=== PATIENT | male | born 2000 | race Caucasian/White ===

== ENCOUNTER 2022-01-14 22:01 | Inpatient (IN) | payer BC ==
[~2022-01-14] VITALS: Ht 188 cm; Wt 88.9 kg
--- NOTE | 2022-01-14 22:16 | NUR ---
SHARLA 89 FROM URGENT CARE FOR SOB X2 DAYS AND CP FOR POSSIBLE PNEUOMOTHORAX. PT A/OX4. TOLERATING R/A AT 95%. CONNECTED PT TO POX AND MONITOR. SAFETY MEASURES IN PLACE.
--- NOTE | 2022-01-14 22:35 | NUR ---
COVID ANTIGEN SWAB COLLECTED AND SENT TO LAB
--- NOTE | 2022-01-14 22:50 | NUR ---
BELLMAN DRIVER AT PT'S BEDSIDE
[2022-01-14] MEDS ORDERED: DIATR MEGLU/DIATRIZOATE SODIUM 30 ML BOTTLE (GASTROGRAPHIN) ONE (22:57)
[2022-01-14] MEDS ORDERED: IOHEXOL-300 100 ML VIAL IV ONE (22:57)
[2022-01-14] MEDS ORDERED: CT SWABBABLE VALVE TRANS SET 1 EA INFUS.SET MC ONE (22:57)
[2022-01-14] MEDS ORDERED: IV NS 0.9% 250 ML IV ONE (22:57)
[2022-01-14] MEDS ORDERED: IV NS 0.9% 1,000 ML BAG IV ONE (23:00)
[2022-01-14 23:07] LABS: BASOPHILS % (AUTO) 0.2 % (0.0-2.0); EOSINOPHILS % (AUTO) 0.6 % (0.0-6.0); HEMATOCRIT 45 % (39-51); HEMOGLOBIN 15.2 g/dL (13.5-17.5); LYMPHOCYTES # (AUTO) 1.6 K/uL (0.8-4.8); LYMPHOCYTES % (AUTO) 9.1 % (20.0-44.0); MEAN CORPUSCULAR HGB CONC 34 g/dl (31.0-36.0); MEAN CORPUSCULAR VOLUME 84 fL (80-96); MONOCYTES # (AUTO) 1.5 K/uL (0.1-1.30); MONOCYTES % (AUTO) 8.5 % (2.0-12.0); NEUTROPHILS # (AUTO) 14.3 K/uL (1.8-8.9); NEUTROPHILS % (AUTO) 81.6 % (43.0-81.0); PLATELET COUNT (AUTO) 277 K/uL (150-450); RED BLOOD CELL COUNT(AUTO) 5.35 MIL/uL (4.5-6.0); WHITE BLOOD COUNT (AUTO) 17.5 K/uL (4.3-11.0)
[2022-01-14 23:15] LABS: CALCIUM, SERUM 9.6 mg/dL (8.5-10.1); CARBON DIOXIDE 27 mmol/L (21-32); CHLORIDE 102 mmol/L (98-107); GLUCOSE 107 mg/dL (74-106); POTASSIUM 3.4 mmol/L (3.5-5.1); SODIUM SERUM 140 mmol/L (136-145); UREA NITROGEN, BLOOD 20 mg/dL (7-18)
--- NOTE | 2022-01-14 23:16 | NUR ---
PT TAKEN TO CT VIA [facility]
--- NOTE | 2022-01-15 01:49 | NUR ---
DR ADAMES ON THE PHONW WITH KEENAN SERRANO
[2022-01-15] MEDS ORDERED: MAG HYDROX/AL HYDROX/SIMETH 30 ML UDC PO PRN (02:00)
[2022-01-15] MEDS ORDERED: MAGNESIUM HYDROXIDE 30 ML UDC PO PRN (02:00)
[2022-01-15] MEDS ORDERED: IV NS 0.9% 1,000 ML IV PRN (02:00)
[2022-01-15] MEDS ORDERED: ACETAMINOPHEN 325 MG TABLET PO PRN (02:00)
[2022-01-15] MEDS ORDERED: Z GUARD REMEDY 4 OZ OINT TP PRN (02:00)
[2022-01-15] MEDS ORDERED: ONDANSETRON HCL/PF 4 MG/2 ML VIAL IVP PRN (02:00)
--- NOTE | 2022-01-15 02:16 | NUR ---
REPORT GIVEN TO 3W RN FOR DADA
[2022-01-15 02:36] VITALS: BP 125/68
--- NOTE | 2022-01-15 02:42 | NUR ---
PT TRANSFERRED TO 3W 323 VIA ACLS PROTOCOL. VSS. ALL BELONGINGS WITH PT.
--- NOTE | 2022-01-15 02:45 | NUR ---
RN ADMITTING NOTE PATIENT BEING ADMITTED FOR PNEUMOMEDIASTINUM. PATIENT IS ON RA AT THIS TIME, 98%, BUT PATIENT WOULD PREFER HAVING OXYGEN HE IS STILL HAVING PAIN AND DIFFICULTY BREATHING. PATIENT NOW PUT ON 2 LPM 02 SUPPLEMENTATION VIA NC, TOLERATING WELL. PATIENT IS A/O X 4 ABLE TO MAKE NEEDS KNOWN. PATIENT REPORTS MILD CP AT THIS TIME. PATIENT HAS A RAC 18 G PATENT AND INTACT, FLUSHING WELL. SKIN INTACT. BELONGINGS INVENTORIED. ORIENTED PATIENT TO ROOM, RN, AND PERIOPERATIVE NURSE. PATIENT IS CURRENTLY NPO, EDUCATED PATIENT REGARDING DIET. PATIENT STATES HE HAS BEEN VACCINATED WITH COVID X 2 AND REFUSES FLU VACCINE AT THIS TIME. PATIENT AMBULATES STEADILY. SAFETY MEASURES IN PLACE: BED LOCKED AND IN LOWEST POSITION, CALL LIGHT WITHIN REACH, SIDE RAILS UP. WILL MONITOR PATIENT CLOSELY.
[2022-01-15] MEDS ORDERED: MORPHINE SULFATE INJ 2 MG/ML DISP.SYRIN IV PRN (04:00)
--- NOTE | 2022-01-15 07:34 | NUR ---
RN CLOSING NOTE PATIENT GIVEN MORPHINE FOR CHEST PAIN, EDUCATED PATIENT REGARDING THE INCENTIVE SPIROMETER. ALL NEEDS MET AND ATTENDED. ALL ORDERS CARRIED OUT. WILL ENDORSE TO DAY SHIFT NURSE FOR DADA.
--- NOTE | 2022-01-15 07:35 | NUR ---
ms r receive on bed, awake,alert,oriented x4,very nice patient, denies pain at this time, no sob noted,lungs has some ronchi on bilateral lower lung,iv infusing well at right ac, complaining of some discomfort, patent but will reinsert site later. will monitor patient.
[2022-01-15 07:39] LABS: BASOPHILS % (AUTO) 0.2 % (0.0-2.0); EOSINOPHILS % (AUTO) 4.1 % (0.0-6.0); HEMATOCRIT 41 % (39-51); HEMOGLOBIN 13.4 g/dL (13.5-17.5); LYMPHOCYTES # (AUTO) 2.4 K/uL (0.8-4.8); LYMPHOCYTES % (AUTO) 14.6 % (20.0-44.0); MEAN CORPUSCULAR HGB CONC 33 g/dl (31.0-36.0); MEAN CORPUSCULAR VOLUME 85 fL (80-96); MONOCYTES # (AUTO) 1.7 K/uL (0.1-1.30); MONOCYTES % (AUTO) 10.3 % (2.0-12.0); NEUTROPHILS # (AUTO) 11.7 K/uL (1.8-8.9); NEUTROPHILS % (AUTO) 70.8 % (43.0-81.0); PLATELET COUNT (AUTO) 241 K/uL (150-450); RED BLOOD CELL COUNT(AUTO) 4.78 MIL/uL (4.5-6.0); WHITE BLOOD COUNT (AUTO) 16.6 K/uL (4.3-11.0)
[2022-01-15] MEDS ORDERED: AMPH20CA3 PO (08:12)
[2022-01-15 08:17] LABS: ALBUMIN 3.7 g/dL (3.4-5.0); BILIRUBIN,TOTAL 0.8 mg/dL (0.2-1.0); CREATININE 0.9 mg/dL (0.6-1.3); MAGNESIUM 2.1 mg/dL (1.8-2.4); PHOSPHORUS 4.2 mg/dL (2.5-4.9); POTASSIUM 3.9 mmol/L (3.5-5.1); TOTAL PROTEIN, SERUM 7.3 g/dL (6.4-8.2)
[2022-01-15 09:04] VITALS: BP 144/87
--- NOTE | 2022-01-15 09:30 | NUR ---
ms darcy npo at this time, will call md for diet.
[2022-01-15 09:55] LABS: THYROID STIMULATING HORMONE 0.926 uIU/mL (0.358-3.74)
[2022-01-15] MEDS: PANTOPRAZOLE 40 MG TABLET.DR PO SCH (10:06)
--- NOTE | 2022-01-15 10:30 | NUR ---
ms rn was seen by dr. downey ,awaiting for orders.
--- NOTE | 2022-01-15 11:00 | NUR ---
ms rn went to reinsert iv, patient requested to do it later.
--- NOTE | 2022-01-15 14:00 | NUR ---
ms rn went to insert iv, requested to do it later, mom at bedside.
--- NOTE | 2022-01-15 14:10 | NUR ---
ms rn texted dr. downey if we can refer pt to dr. harris since patient has occasional couhging, and shes ok w/ that, called dr. harris in ic[facility].
--- NOTE | 2022-01-15 14:23 | NUR ---
ms rn was seen by dr. harris, waiting for orders.
[2022-01-15] MEDS ORDERED: HYDROCODONE BIT/HOMATROPINE 5 ML UDC PO PRN (15:00)
[2022-01-15] MEDS ORDERED: LORAZEPAM 1 MG TABLET PO PRN (15:00)
[2022-01-15 16:08] VITALS: BP 144/88
[2022-01-15] MEDS: methylPREDNISolone SOD SUCC 40 MG/ML VIAL IV SCH (16:13)
--- NOTE | 2022-01-15 16:40 | NUR ---
ms rn called rt for rt tx, due meds given, new iv site placed at left forearm w/ good venous return.
[2022-01-15] MEDS: ALBUTEROL HALF STRENGTH 1.25 MG/3 ML VIAL.NEB NEB SCH ×2 (16:47→20:04)
[2022-01-15] MEDS: IPRATROPIUM NEB FS 0.5 MG/2.5 ML AMPUL.NEB NEB SCH ×2 (16:47→20:04)
--- NOTE | 2022-01-15 19:56 | NUR ---
christopher rn opening received patient a/ox4, mother at bedside with patient. no s/s of apparent distress on room air. denies any pain at this time. l. fa #22g running ns @75mls/hr. call light within reach and encouraged with the use of call light. safety in place. will continue with the plan of care for patient.
[2022-01-15 20:51] VITALS: BP 140/83
[2022-01-16] MEDS: ALBUTEROL HALF STRENGTH 1.25 MG/3 ML VIAL.NEB NEB SCH ×4 (01:30→13:59)
[2022-01-16] MEDS: IPRATROPIUM NEB FS 0.5 MG/2.5 ML AMPUL.NEB NEB SCH ×4 (01:30→13:59)
--- NOTE | 2022-01-16 01:30 | NUR ---
noc rn note patient refused breathing tx at this time. per patient he would get it in the morning.
--- NOTE | 2022-01-16 07:09 | NUR ---
noc rn closing note patient in bed, getting cxr at this time. no s/s of apparent distress on 2lpm of o2 via nc on and off. denies pain at this time. all needs attended. safety kept in place the whole shift. will endorse to morning shift rn for continuity of care.
--- NOTE | 2022-01-16 07:10 | NUR ---
ms rn received on bed, awake,alert,oriented x4,not in any form of distress,respirations even and un;labored ,no sob noted, abdomen soft,positive bowel sounds,denies pain at this time,will monitor patient.
[2022-01-16] MEDS: PANTOPRAZOLE 40 MG TABLET.DR PO SCH (07:57)
[2022-01-16 08:40] VITALS: BP 134/69
[2022-01-16] MEDS: methylPREDNISolone SOD SUCC 40 MG/ML VIAL IV SCH ×2 (09:19→17:00)
--- NOTE | 2022-01-16 09:30 | NUR ---
ms taveras breakfast served,due meds given,tolerated well.
--- NOTE | 2022-01-16 10:30 | NUR ---
ms rn was seen by dr. harris, waiting for orders.
[2022-01-16] MEDS ORDERED: PANT40TA49 PO (13:49)
[2022-01-16] MEDS ORDERED: PRED10TA23 PO (13:49)
[2022-01-16] MEDS ORDERED: ALBU18HF2 INH (13:49)
[2022-01-16] MEDS ORDERED: ALBU1.25 NEB (13:49)
--- NOTE | 2022-01-16 14:57 | NUR ---
ms rn patient's saturation is 87% on room air, clinical case manager aware for o2 order.
[2022-01-16 16:35] VITALS: BP 136/76
[2022-01-16] MEDS ORDERED: BUDE180A INH (16:39)
--- NOTE | 2022-01-16 18:20 | NUR ---
Patient was discharged to home in stable condition with all his belongings. Discharge papers and instructions given to the patient together with his Mom and verbalized good understanding. Staff assigned assisted to transfer in private car and both of them were appreciative of the care received during his stay in the hospital.
== END 2022-01-16 18:12 | disposition home or self-care (01) | DRG 202 ==
LOC: ER 22:15 → TELE 01-15 02:18 → MED 01-15 02:40 → TELE 01-15 03:34 → MED 01-15 04:49
PROVIDERS: ADMIT Student in an Organized Health Care Education/Training Program; ATTEND Student in an Organized Health Care Education/Training Program
DX: J20.9 Acute bronchitis, unspecified (principal); J45.901 Unspecified asthma with (acute) exacerbation; J98.2 Interstitial emphysema; Z20.822 Contact with and (suspected) exposure to COVID-19; Z79.899 Other long term (current) drug therapy; Z79.51 Long term (current) use of inhaled steroids; F41.9 Anxiety disorder, unspecified
CPT/HCPCS: 36415; 71045-TC; 71260-TC; 80048-TC; 80053-TC; 83735-TC; 84100-TC; 84443-TC; 84484-TC; 85025-TC; 87081-TC; 94799-TC; C9803; G0378; J2270; J2920; J7030; J7050; Q9963; Q9967